=== PATIENT | female | born 1980 | race Caucasian/White ===

== ENCOUNTER 2018-05-21 09:56 | Emergency (ER) | payer MEDICAID ==
[~2018-05-21] VITALS: Ht 149.9 cm; Wt 91.2 kg
[2018-05-21 10:00] VITALS: Ht 149.9 cm; Wt 91.2 kg
[2018-05-21] MEDS ORDERED: SOD CHLORIDE 0.9% 1,000 ML IV ONE (11:30)
[2018-05-21] MEDS ORDERED: LANT3I SC (12:32)
--- NOTE | 2018-05-21 12:35 | ERD ---
ER Documentation Chief Complaint Chief Complaint hyperglycemia BS 225 at home; 9 wks preg ROS All systems reviewed and are negative except as per history of present illness. Medications Home Meds Active Scripts Insulin Glargine* (Lantus*) 100 Unit/Ml Soln, 34 UNIT SC QHS for diabetes, #2 VIAL Prov:CAYDEN DONALD DO 05/21/18 Allergies Allergies: Coded Allergies: No Known Allergy (Unverified , 05/21/18) PMhx/Soc Medical and Surgical Hx: pt denies Medical Hx, pt denies Surgical Hx Hx Alcohol Use: No Hx Substance Use: No Hx Tobacco Use: No Smoking Status: Never smoker Physical Exam Vitals Vital Signs Date Temp Pulse Resp B/P (MAP) Pulse Ox O2 O2 Flow FiO2 Time Delivery Rate 05/21/18 99.2 96 18 147/52 99 10:00 (83) Physical Exam Const: No acute distress Head: Atraumatic Eyes: Normal Conjunctiva ENT: Normal External Ears, Nose and Mouth. Neck: Full range of motion. No meningismus. Resp: Clear to auscultation bilaterally Cardio: Regular rate and rhythm, no murmurs Abd: Soft, non tender, non distended. Normal bowel sounds Skin: No petechiae or rashes Back: No midline or flank tenderness Ext: No cyanosis, or edema Neur: Awake and alert Psych: Normal Mood and Affect Results 24 hrs Laboratory Tests Test 05/21/18 11:27 Bedside Glucose 161 mg/dL Current Medications Medications Dose Sig/Paula Start Time Status Last (Trade) Ordered Route PRN Stop Time Admin Dose Reason Admin Sodium 1,000 ml @ Q1H ONCE 05/21/18 DC Chloride 1,000 mls/hr IV 11:30 05/21/18 12:01 Departure Diagnosis: Primary Impression: Hyperglycemia in Condition: Fair Patient Instructions: Hyperglycemia (High Blood Sugar) Referrals: [facility] YOU HAVE RECEIVED A MEDICAL SCREENING EXAM AND THE RESULTS INDICATE THAT YOU DO NOT HAVE A CONDITION THAT REQUIRES URGENT TREATMENT IN THE EMERGENCY DEPARTMENT. FURTHER EVALUATION AND TREATMENT OF YOUR CONDITION CAN WAIT UNTIL YOU ARE SEEN IN YOUR DOCTORS OFFICE WITHIN THE NEXT 1-2 DAYS. IT IS YOUR RESPONSIBILITY TO MAKE AN APPOINTMENT FOR FOLOW-UP CARE. IF YOU HAVE A PRIMARY DOCTOR --you should call your primary doctor and schedule an appointment IF YOU DO NOT HAVE A PRIMARY DOCTOR YOU CAN CALL OUR PHYSICIAN REFERRAL HOTLINE AT IF YOU CAN NOT AFFORD TO SEE A PHYSICIAN YOU CAN CHOSE FROM THE FOLLOWING [facility] [address] [facility]. [facility] [phone] [address] [facility]. [facility] [address] [facility]. [facility] [address] [facility]. [facility] [address] [facility]. [facility] [address] Additional Instructions: Call your primary care doctor TOMORROW for an appointment during the next 1-2 days.See the doctor sooner or return here if your condition worsens before your appointment time. Follow up with Imaging Center Manager Dr. Hoover on 05/24/2018 at 2pm. CAYDEN DONALD DO May 21, 2018 12:35
[2018-05-21 12:45] VITALS: BP 142/54; PULSE 92; RESP 18
== END 2018-05-21 12:45 | disposition home or self-care (01) ==
LOC: FTE 09:56
DX: O99.89 Other specified diseases and conditions complicating pregnancy, childbirth and the puerperium (principal); R73.9 Hyperglycemia, unspecified; Z3A.09 9 weeks gestation of pregnancy
CPT/HCPCS: 82962; J7030; Z7502; 99282

== ENCOUNTER 2018-05-24 16:48 | Emergency (ER) | payer MEDICAID ==
[~2018-05-24] VITALS: Ht 149.9 cm; Wt 94.0 kg
[~2018-05-24 16:48] MED LIST: LANT3I SC
[2018-05-24 17:00] VITALS: Ht 149.9 cm; Wt 94.0 kg
[2018-05-24] MEDS ORDERED: SOD CHLORIDE 0.9% 1,000 ML IV ONE (20:30)
[2018-05-24 23:05] VITALS: BP 136/77; PULSE 83; RESP 17
--- NOTE | 2018-05-25 01:12 | ERD ---
ER Documentation Chief Complaint Chief Complaint pt is sent by OB MD for admission due to DM and HPI 37 year-old [female] coming in today with Chief Complaint: Hyperglycemia History of Present Illness: Patient reporting [facility] send patient to the ER for evaluation for hyperglycemia patient reports. Approximately 9 weeks . Denies any other associated symptoms; no nausea, vomiting, abdominal pain. Review of systems: All systems were reviewed and are negative except for what is indicated in the history of present illness. Past Medical History: [Negative for hypertension, diabetes or other medical problems] Social History: [Patient denies tobacco, alcohol, elicit drug use] Medications: [None] [Reviewed as documented Nursing Notes] Allergies: [NKDA] [Reviewed as documented in Nursing Notes] Social Concerns: Denies ROS All systems reviewed and are negative except as per history of present illness. Medications Home Meds Active Scripts Insulin Glargine* (Lantus*) 100 Unit/Ml Soln, 34 UNIT SC QHS for diabetes, #2 VIAL Prov:CAYDEN DONALD 05/21/18 Allergies Allergies: Coded Allergies: No Known Allergy (Unverified , 05/24/18) PMhx/Soc History of Surgery: Yes (Ortho surgery) Hx Miscellaneous Medical Probl: Yes (DM) Hx Alcohol Use: No Hx Substance Use: No Hx Tobacco Use: No Smoking Status: Never smoker Physical Exam Vitals Vital Signs Date Temp Pulse Resp B/P (MAP) Pulse Ox O2 O2 Flow FiO2 Time Delivery Rate 05/24/18 98.5 83 17 136/77 100 Room Air 23:05 (96) 05/24/18 98.9 106 16 150/67 99 17:00 (94) Physical Exam Const: No acute distress Head: Atraumatic Eyes: Normal Conjunctiva ENT: Normal External Ears, Nose and Mouth. Neck: Full range of motion. No meningismus. Resp: Clear to auscultation bilaterally Cardio: Regular rate and rhythm, no murmurs Abd: Soft, non tender, non distended. Normal bowel sounds Skin: No petechiae or rashes Back: No midline or flank tenderness Ext: No cyanosis, or edema Neur: Awake and alert Psych: Normal Mood and Affect Result Diagram: 05/24/18 1950 05/24/181949 Results 24 hrs Laboratory Tests Test 05/24/18 19:50 05/24/18 19:53 05/24/18 20:05 05/24/18 22:20 White Blood Count 10.4 10^3/ul Red Blood Count 4.48 10^6/ul Hemoglobin 12.8 g/dl Hematocrit 39.6 % Mean Corpuscular 88.4 fl Volume Mean Corpuscular 28.6 pg Hemoglobin Mean Corpuscular 32.3 g/dl Hemoglobin Concent Red Cell 15.6 % Distribution Width Platelet Count 379 10^3/UL Mean Platelet 9.9 fl Volume Immature 0.400 % Granulocytes % Neutrophils % 61.1 % Lymphocytes % 28.2 % Monocytes % 8.1 % Eosinophils % 1.7 % Basophils % 0.5 % Nucleated Red Blood 0.0 /100WBC Cells % Immature 0.040 10^3/ul Granulocytes # Neutrophils # 6.4 10^3/ul Lymphocytes # 2.9 10^3/ul Monocytes # 0.8 10^3/ul Eosinophils # 0.2 10^3/ul Basophils # 0.1 10^3/ul Nucleated Red Blood 0.0 10^3/ul Cells # Sodium Level 140 mmol/L Potassium Level 4.1 mmol/L Chloride Level 107 mmol/L Carbon Dioxide 22 mmol/L Level Anion Gap 11 Blood Urea Nitrogen 9 mg/dl Creatinine 0.56 mg/dl Est Glomerular > 60 mL/min Filtrat Rate mL/min Glucose Level 157 mg/dl Calcium Level 9.5 mg/dl Bedside Glucose 160 mg/dL 109 mg/dL Urine Color YELLOW Urine Clarity CLEAR Urine pH 6.0 Urine Specific 1.024 [place] Urine Ketones TRACE mg/dL Urine Nitrite NEGATIVE mg/dL Urine Bilirubin NEGATIVE mg/dL Urine Urobilinogen NEGATIVE mg/dL Urine Leukocyte NEGATIVE Brneda/ul Esterase Urine Hemoglobin NEGATIVE mg/dL Urine Glucose 3+ mg/dL Urine Total Protein NEGATIVE mg/dl Current Medications Medications Dose Sig/Paula Start Time Status Last (Trade) Ordered Route PRN Stop Time Admin Dose Reason Admin Sodium 1,000 ml @ Q1H ONCE 05/24/18 DC 05/24/18 Chloride 1,000 mls/hr IV 20:30 05/24/18 20:35 21:29 Procedures/MDM ED course includes a thorough examination and history. ED course includes labs; CBC, CMP, urinalysis. Low suspicion for life-threatening medical emergency. Patient reassessment at 2019: No changes in patient condition. Will order 1 L bolus of IV NS glucose. Patient reassessment at 2230: No changes in patient condition. Glucose has decreased. Updated patient on plan of care, will page Dr. Pike. Physician consultation @2240: Spoke to Dr. Pike by phone. [facility] patient was supposed to go to labor and delivery and not ER. [facility] patient will need to be admitted. Okay to discharge patient from ER and send to OB triage Otherwise healthy patient presenting with constellation of symptoms likely repre senting gestational diabetes as characterized by history, physical exam findings [lab findings]. CMP showing glucose at 157. Urinalysis showing positive ketones and glucose. CBC within normal limits. No respiratory distress, otherwise relatively well appearing and nontoxic. Patient educated on diagnoses, prescriptions, follow-up care, return precautions. Strict return precautions given for worsening condition; questions answered discharge. Disposition for discharge with followup in [facility] immediately after discharge. Departure Diagnosis: Primary Impression: Hyperglycemia during Condition: Stable Patient Instructions: Hyperglycemia (High Blood Sugar) Referrals: [facility] YOU HAVE RECEIVED A MEDICAL SCREENING EXAM AND THE RESULTS INDICATE THAT YOU DO NOT HAVE A CONDITION THAT REQUIRES URGENT TREATMENT IN THE EMERGENCY DEPARTMENT. FURTHER EVALUATION AND TREATMENT OF YOUR CONDITION CAN WAIT UNTIL YOU ARE SEEN IN YOUR DOCTORS OFFICE WITHIN THE NEXT 1-2 DAYS. IT IS YOUR RESPONSIBILITY TO MAKE AN APPOINTMENT FOR FOLOW-UP CARE. IF YOU HAVE A PRIMARY DOCTOR --you should call your primary doctor and schedule an appointment IF YOU DO NOT HAVE A PRIMARY DOCTOR YOU CAN CALL OUR PHYSICIAN REFERRAL HOTLINE AT IF YOU CAN NOT AFFORD TO SEE A PHYSICIAN YOU CAN CHOSE FROM THE FOLLOWING [facility] CL[facility] [address] [facility] [address] [facility] [address] [facility] [address] [facility] [address] [facility]. [address] [facility]. [facility] YOU HAVE RECEIVED A MEDICAL SCREENING EXAM AND THE RESULTS INDICATE THAT YOU DO NOT HAVE A CONDITION THAT REQUIRES URGENT TREATMENT IN THE EMERGENCY DEPARTMENT. FURTHER EVALUATION AND TREATMENT OF YOUR CONDITION CAN WAIT UNTIL YOU ARE SEEN IN YOUR DOCTORS OFFICE WITHIN THE NEXT 1-2 DAYS. IT IS YOUR RESPONSIBILITY TO MAKE AN APPOINTMENT FOR FOLOW-UP CARE. IF YOU HAVE A PRIMARY DOCTOR --you should call your primary doctor and schedule and appointment IF YOU DO NOT HAVE A PRIMARY DOCTOR YOU CAN CALL OUR PHYSICIAN REFERRAL HOTLINE AT . IF YOU CAN NOT AFFORD TO SEE A PHYSICIAN YOU CAN CHOSE FROM THE FOLLOWING [facility] INSTITUTIONS: [facility] [address] [place] [address] [facility] [address] [place] [address] [facility] [address] [place] [address] Additional Instructions: After discharge from ER, reports to [facility] triage for assessment. FRANK MON NP May 25, 2018 01:12
== END 2018-05-24 23:07 | disposition home or self-care (01) ==
LOC: FTE 16:48
DX: O24.419 Gestational diabetes mellitus in pregnancy, unspecified control (principal); Z3A.01 Less than 8 weeks gestation of pregnancy; Z79.4 Long term (current) use of insulin
CPT/HCPCS: 80048; 81003; 82962; 85025; J7030; 36415; 96360; 96361

== ENCOUNTER 2018-05-24 23:24 | Inpatient (IN) | payer MEDICAID ==
[~2018-05-24] VITALS: Ht 149.9 cm; Wt 91.8 kg
[2018-05-24] MEDS ORDERED: GLUCAGON 1 MG INJ IM PRN (23:45)
[2018-05-24] MEDS ORDERED: DEXTROSE 50% 50 ML SYRINGE IV PRN ×2 (23:45)
[2018-05-24] MEDS ORDERED: GLUCOSE GEL 15 GRAM TUBE PO PRN ×2 (23:45)
[2018-05-24] MEDS ORDERED: GLUCOSE GEL 15 GRAM TUBE BUCCAL PRN (23:45)
[2018-05-25] MEDS ORDERED: NACL 0.9% 3 ML SYG IV SCH
[2018-05-25] MEDS ORDERED: AL HYDROX/MG HYDROX/SIMETH 30 ML CUP PO PRN
[2018-05-25] MEDS ORDERED: VITAMIN A & D 5 GM OINT PACKET TOP ONE (01:36)
[2018-05-25 06:18] VITALS: Ht 149.9 cm; Wt 91.8 kg
[2018-05-25] MEDS ORDERED: INSULIN ASPART [NOVOLOG] 3 ML PEN SC SCH (07:35)
[2018-05-25] MEDS: ACCU-CHEK XX SCH ×7 (08:00→21:14)
[2018-05-25] MEDS: PRENATAL VITAMIN PO SCH (10:57)
[2018-05-25] MEDS: FERROUS SULFATE (EC) 325 MG TAB PO SCH (10:57)
[2018-05-25] MEDS: INSULIN ASPART [NOVOLOG] 3 ML PEN SC PRN ×2 (15:36→21:21)
--- NOTE | 2018-05-25 17:49 | HP ---
Date/Time of Note Date/Time of Note DATE: 05/25/18 TIME: 17:46 OB - History Hx of Present Chief Complaint: uncontrolled DM Last Menstrual Period: Mar 18, 2018 : 3 Para: 0 Spontaneous : 1 Therapeutic : 1 Care: Limited Care Obstetrical Complications: None Medical Complications: Other (Type II DM) Past Family/Social History * Past Medical, Surgical, Family and Obstetric Histories reviewed from chart. OB Admission Exam Physical Exam HEENT: WNL Heart: Rhythm Normal Lungs: Clear, Equal Abdomen: WNL Extremities: Normal Reflexes: Normal Last 72 hourBlood Glucose Bedside Glucose - 72 Hours Test 05/25/18 08:26 05/25/18 10:50 05/25/18 13:01 05/25/18 15:15 Bedside 134 187 139 172 Glucose mg/dL (70-220) mg/dL (70-220) mg/dL (70-220) mg/dL (70-220) Last 72 hours Lab Results Hemoglobin A1C Test 05/25/18 00:49 Hemoglobin A1c 8.1 H OB Assessment/Plan Reason for admission: other Other Assessment: 9+ weeks Uncontrolled Type II DM Plan: Other Other plan: Admit Monitor blood glucose Perinatology consult NABILA PIKE MD May 25, 2018 17:49
[2018-05-25] MEDS: ACETAMINOPHEN 325 MG TAB PO PRN (22:03)
[2018-05-26] MEDS: ACETAMINOPHEN 325 MG TAB PO PRN ×2 (05:43→12:33)
[2018-05-26] MEDS: ACCU-CHEK XX SCH ×7 (08:08→20:36)
[2018-05-26] MEDS: PRENATAL VITAMIN PO SCH (08:27)
[2018-05-26] MEDS: FERROUS SULFATE (EC) 325 MG TAB PO SCH (08:27)
[2018-05-26] MEDS: INSULIN ASPART [NOVOLOG] 3 ML PEN SC PRN ×2 (10:21→15:32)
--- NOTE | 2018-05-26 20:45 | QN ---
Documentation Comment No complaint Afebrile VSS Perinatology will start insulin regimen NABILA PIKE MD May 26, 2018 20:45
[2018-05-26] MEDS ORDERED: NPH, HUMAN INSULIN ISOPHANE 3ML VIAL SC SCH (21:00)
[2018-05-27] MEDS: ACCU-CHEK XX SCH ×7 (07:45→20:32)
[2018-05-27] MEDS: FERROUS SULFATE (EC) 325 MG TAB PO SCH (08:31)
[2018-05-27] MEDS: PRENATAL VITAMIN PO SCH (08:31)
[2018-05-27] MEDS: NPH, HUMAN INSULIN ISOPHANE 3ML VIAL SC SCH (08:32)
[2018-05-27] MEDS: INSULIN ASPART [NOVOLOG] 3 ML PEN SC SCH ×2 (08:33→18:06)
--- NOTE | 2018-05-27 18:28 | QN ---
Documentation Comment No complaint Afebrile VSS Blood glucose still elevated Adjust insulin regimen per Perinatology. NABILA PIKE MD May 27, 2018 18:28
[2018-05-27] MEDS ORDERED: NPH, HUMAN INSULIN ISOPHANE 3ML VIAL SC SCH (21:00)
[2018-05-28] MEDS: ACETAMINOPHEN 325 MG TAB PO PRN ×4 (04:44→17:01)
[2018-05-28] MEDS: ACCU-CHEK XX SCH ×6 (07:51→18:09)
[2018-05-28] MEDS: NPH, HUMAN INSULIN ISOPHANE 3ML VIAL SC SCH (08:46)
[2018-05-28] MEDS: INSULIN ASPART [NOVOLOG] 3 ML PEN SC SCH ×2 (08:47→17:50)
[2018-05-28] MEDS: PRENATAL VITAMIN PO SCH (08:49)
[2018-05-28] MEDS: FERROUS SULFATE (EC) 325 MG TAB PO SCH (08:49)
--- NOTE | 2018-05-28 15:39 | CONS ---
DATE OF ADMISSION: 05/24/2018 DATE OF CONSULTATION: 05/28/2018 TYPE OF CONSULTATION: Obstetrics. HISTORY OF PRESENT ILLNESS: The patient currently is at 10 weeks and 1 day yesterday with has been 1 0 weeks, admitted for uncontrolled diabetes. Hemoglobin A1c of 8.1. She had been placed for the pre vious 2 weeks on Levemir. Upon admission, I asked her to stop her insulin, Levemir, put her on slidi ng scale until we have over 24 hours values to evaluate for insulin and she was started on insulin on Sunday night. OBSTETRIC HISTORY: Significant for one and one tap. Denies hypertension. FAMILY HISTORY: Maternal mother has diabetes. VITAL SIGNS: Stable. Physical exam deferred. IMPRESSION: Intrauterine at 10 weeks and 1 day with uncontrolled diabetes, started on insu jani on Sunday night. They were adjusted yesterday and today and her values currently are appropriate enough for outpatient management. She also mentions she has had fatty liver. She denies any history of gallbladder disease or alcohol use. LFTs are to be done. A 24-hour urine for protein has been also done. RECOMMENDATION: The patient can be discharged home with followup with perinatology in 1 week. Paige farias order the insulin regimen as ordered and provide her with her glucometer if she does not have it. Dictated By: OLIVER CHAPA/HERMAN Conf#: [id number] DID#: [id number]
--- NOTE | 2018-05-28 18:26 | DS ---
Date/Time of Note Date/Time of Note DATE: 05/28/18 TIME: 18:25 Obstetrical Discharge Record Final Diagnosis Final Diagnosis: not delivered Other Final Diagnosis Type II DM controlled by insulin Complications Insulin Dependent Diabete Condition on Discharge Physical Assessment Voiding: Yes Bowel Movement: Yes Calf Tenderness: No Patient Condition: Stable NABILA PIKE MD May 28, 2018 18:26
--- NOTE | 2018-05-30 08:52 | RADRPT ---
Vent Rate: 82 bpm RR Interval: 0 msec NE Interval: 150 msec QRS Duration: 82 msec QT Interval: 376 msec QTC Interval: 439 msec P-R-T [place]: 30 - 64 - 16 degrees Normal sinus rhythm Normal ECG Electronically Signed By: Renard Funk
== END 2018-05-28 19:00 | disposition home or self-care (01) | DRG 833 ==
LOC: PP1 23:24
PROVIDERS: ADMIT Obstetrics & Gynecology; ATTEND Obstetrics & Gynecology
DX: O24.111 Pre-existing type 2 diabetes mellitus, in pregnancy, first trimester (principal); E11.65 Type 2 diabetes mellitus with hyperglycemia; Z3A.10 10 weeks gestation of pregnancy; Z83.3 Family history of diabetes mellitus
CPT/HCPCS: 76801; 81003; 82575; 82962; 83036; 84156; 87086; 93005; J1815

== ENCOUNTER 2018-09-08 01:11 | Inpatient (IN) | payer MEDICAID ==
[~2018-09-08] VITALS: Ht 152.4 cm; Wt 93.3 kg
[2018-09-08 01:41] VITALS: BP 112/70; PULSE 102; RESP 18; Ht 152.4 cm; Wt 93.3 kg
[2018-09-08] MEDS ORDERED: PREN1TAB13 PO (01:47)
[2018-09-08] MEDS ORDERED: FERR325T5 PO (01:47)
[2018-09-08] MEDS ORDERED: INSU100C3 SQ (01:47)
[2018-09-08] MEDS ORDERED: ACET325T45 PO (01:47)
[2018-09-08] MEDS ORDERED: NOVO7030 SC (01:47)
[2018-09-08] MEDS ORDERED: CEFTRIAXONE 1 GM/50 ML (PMX) 50 ML IVPB SCH (02:30)
[2018-09-08] MEDS: SOD CHLORIDE 0.9% 1,000 ML IV SCH ×2 (03:04→22:11)
[2018-09-08] MEDS: ACETAMINOPHEN 325 MG TAB PO PRN ×3 (04:23→21:05)
--- NOTE | 2018-09-08 05:04 | TRIAGE ---
OB Triage Datetime Report Generated by CPN: 09/08/2018 05:03 Datetime: 09/08/2018 04:00 Assessment Type: Admission Assessment Maternal Assessment Level of Consciousness: Keenly Alert, Responsive Headache: Denies Blurred Vision: No Respiratory Effort: Unlabored; Regular Rhythm; Equal Expansion Breath Sounds, Left: Clear and Equal Breath Sounds, Right: Clear and Equal Nausea/Vomiting: Denies RUQ Epigastric Pain: Denies Lower Extremities Edema: None Upper Extremities Edema: None Facial Edema: None Fall Risk Assessment History of Falling: (0) No Secondary Diagnosis: (0) No Ambulatory Aid: (0) Bedrest/Nurse Assist IV Therapy: (20) Yes Gait: (0) Normal/Bedrest/Immobile Mental Status: (0) Oriented to Own Ability Fall Score: 20 Fall Risk Score Definition: No Risk: No action required Datetime: 09/08/2018 03:52 Temperature Route: Oral Contraction Comments: DENIES UCS OR CRAMPING Comments: FHR 140-159 + MOVEMENT AND AUDIBLE ACCELS Pain Assessment Pain Scale: 5 Pain Presence: Constant Pain Type: Ache Pain Location: Back (Annotations: SORE THROAT) Pain Relief Measures: Comfort Measures Datetime: 09/08/2018 03:00 Stage of : Antepartum Datetime: 09/08/2018 02:09 Contraction Comments: OFF Comments: MONITORS OFF. NEW ORDERS RECEIVED. Datetime: 09/08/2018 01:54 Stage of : OB Triage Labor Evaluation Frequency: X0 Monitor Mode: External Duration (sec)2399: X0 Pattern: Normal: <= 5 Contractions in 10 Minutes Resting Tone [place]: Relaxed Heart Rate FHR Baseline Rate: 145 Monitor Mode: External US Variability: Moderate 6-25 bpm Accelerations: 15X15 Decelerations: None Category: Category I Comments: APPROPRIATE FOR GESTATIONAL AGE Datetime: 09/08/2018 01:18 Stage of : OB Triage Maternal Assessment Level of Consciousness: Keenly Alert, Responsive DTR's/Clonus: DTRs 2+; No Clonus Headache: Denies Blurred Vision: No Respiratory Effort: Unlabored; Regular Rhythm; Equal Expansion Breath Sounds, Left: Clear and Equal Breath Sounds, Right: Clear and Equal Nausea/Vomiting: Denies RUQ Epigastric Pain: Denies Lower Extremities Edema: None Degree: None Upper Extremities Edema: None Degree: None Facial Edema: None Temperature Route: Oral Fall Risk Assessment History of Falling: (0) No Secondary Diagnosis: (0) No Ambulatory Aid: (0) Bedrest/Nurse Assist IV Therapy: (0) No Gait: (0) Normal/Bedrest/Immobile Mental Status: (0) Oriented to Own Ability Fall Score: 0 Fall Risk Score Definition: No Risk: No action required Pain Assessment Pain Scale: 6 Pain Presence: Constant Pain Type: Cramping; Ache Pain Location: Abdomen; Back Datetime: 09/08/2018 01:00 Time of Arrival: 09/08/2018 00:57 EGA: 24.6 Arrived By: Wheelchair Arrived From: Home Chief Complaint: back pain, fever, sore throat, body ache, dysuria Movement: Present Contractions: Denies/Absent Rupture of Membranes: Denies Vaginal Bleeding: None Vaginal Discharge: Denies Recent Sexual Intercouse: Denies Abdominal Trauma: Not Applicable Patient Complaints: Back Pain; Urinary Frequency; Pain on Urination; Fever; Other Time Provider Notified: 09/08/2018 01:55 Provider Notified: DR. PIKE Initial Plan: EFM, CALL OB Datetime: 07/24/2018 22:55 Time of Arrival: 05/24/2018 22:55 EGA: 9.4 Arrived By: Ambulatory Arrived From: Emergency Dept Datetime: 05/28/2018 18:00 Bedside Blood Glucose: 90 Pain Presence: None/Denies Datetime: 05/28/2018 17:00 Stage of : Antepartum Maternal Assessment Level of Consciousness: Fully Conscious Headache: Denies Nausea/Vomiting: Denies RUQ Epigastric Pain: Denies Pain Presence: None/Denies Datetime: 05/28/2018 16:08 Maternal Assessment Level of Consciousness: Fully Conscious Headache: Denies Blurred Vision: No Respiratory Effort: Equal Expansion Nausea/Vomiting: Denies RUQ Epigastric Pain: Denies Pain Presence: None/Denies Datetime: 05/28/2018 16:01 Stage of : Antepartum Maternal Assessment Level of Consciousness: Fully Conscious Headache: Denies Nausea/Vomiting: Denies RUQ Epigastric Pain: Denies Pain Presence: None/Denies Datetime: 05/28/2018 15:04 Stage of : Antepartum Maternal Assessment Level of Consciousness: Fully Conscious Headache: Denies Blurred Vision: No Respiratory Effort: Unlabored Nausea/Vomiting: Denies RUQ Epigastric Pain: Denies Bedside Blood Glucose: 118 Contraction Comments: pt. denies cramping Pain Assessment Pain Scale: 0 Pain Presence: None/Denies Vaginal Bleeding: None Datetime: 05/28/2018 14:00 Stage of : Antepartum Maternal Assessment Level of Consciousness: Fully Conscious Headache: Denies Nausea/Vomiting: Denies RUQ Epigastric Pain: Denies Pain Presence: None/Denies Datetime: 05/28/2018 13:00 Bedside Blood Glucose: 90 Pain Presence: Intermittent Datetime: 05/28/2018 12:00 Stage of : Antepartum Maternal Assessment Level of Consciousness: Fully Conscious Headache: Denies Nausea/Vomiting: Denies RUQ Epigastric Pain: Denies Pain Presence: None/Denies Datetime: 05/28/2018 10:47 Maternal Assessment Level of Consciousness: Fully Conscious Headache: Denies Blurred Vision: No Respiratory Effort: Unlabored Nausea/Vomiting: Denies RUQ Epigastric Pain: Denies Bedside Blood Glucose: 112 Pain Presence: None/Denies Datetime: 05/28/2018 08:49 Maternal Assessment Level of Consciousness: Fully Conscious Headache: Denies Blurred Vision: No Respiratory Effort: Unlabored Nausea/Vomiting: Denies RUQ Epigastric Pain: Denies Datetime: 05/28/2018 08:12 Stage of : Antepartum Maternal Assessment Level of Consciousness: Fully Conscious Maternal Assessment Level of Consciousness: Fully Conscious Headache: Denies Nausea/Vomiting: Denies RUQ Epigastric Pain: Denies Pain Presence: None/Denies Datetime: 05/28/2018 07:11 Assessment Type: Ongoing Assessment Maternal Assessment Level of Consciousness: Fully Conscious Maternal Assessment Level of Consciousness: Fully Conscious DTR's/Clonus: DTRs 2+; No Clonus Headache: Denies Headache: Denies Blurred Vision: No Blurred Vision: No Respiratory Effort: Unlabored; Regular Rhythm; Equal Expansion Respiratory Effort: Unlabored Breath Sounds, Left: Clear and Equal Breath Sounds, Right: Clear and Equal Nausea/Vomiting: Denies Nausea/Vomiting: Denies RUQ Epigastric Pain: Denies RUQ Epigastric Pain: Denies Lower Extremities Edema: None Upper Extremities Edema: None Facial Edema: None Fall Risk Assessment History of Falling: (0) No Secondary Diagnosis: (0) No Ambulatory Aid: (0) Bedrest/Nurse Assist IV Therapy: (0) No Gait: (0) Normal/Bedrest/Immobile Mental Status: (0) Oriented to Own Ability Fall Score: 0 Fall Risk Score Definition: No Risk: No action required Pain Presence: None/Denies Datetime: 05/28/2018 04:39 Stage of : Antepartum Maternal Assessment Level of Consciousness: Fully Conscious Headache: Denies Blurred Vision: No Temperature Route: Oral Pain Presence: None/Denies Datetime: 05/27/2018 20:21 Bedside Blood Glucose: 92 Datetime: 05/27/2018 19:46 Stage of : Antepartum Assessment Type: Ongoing Assessment Maternal Assessment Level of Consciousness: Fully Conscious DTR's/Clonus: DTRs 2+; No Clonus Headache: Denies Blurred Vision: No Respiratory Effort: Unlabored; Regular Rhythm; Equal Expansion Breath Sounds, Left: Clear and Equal Breath Sounds, Right: Clear and Equal Nausea/Vomiting: Denies RUQ Epigastric Pain: Denies Lower Extremities Edema: None Degree: None Upper Extremities Edema: None Degree: None Facial Edema: None Temperature Route: Oral Fall Risk Assessment History of Falling: (0) No Secondary Diagnosis: (0) No Ambulatory Aid: (0) Bedrest/Nurse Assist IV Therapy: (0) No Gait: (0) Normal/Bedrest/Immobile Mental Status: (0) Oriented to Own Ability Fall Score: 0 Fall Risk Score Definition: No Risk: No action required Pain Presence: None/Denies Datetime: 05/27/2018 18:07 Bedside Blood Glucose: 103 Datetime: 05/27/2018 17:06 Stage of : Antepartum Maternal Assessment Level of Consciousness: Fully Conscious Headache: Denies Nausea/Vomiting: Denies RUQ Epigastric Pain: Denies Pain Assessment Pain Scale: 0 Pain Presence: None/Denies Vaginal Bleeding: None Datetime: 05/27/2018 16:28 Stage of : Antepartum Maternal Assessment Level of Consciousness: Fully Conscious Headache: Denies Nausea/Vomiting: Denies RUQ Epigastric Pain: Denies Temperature Route: Oral Pain Assessment Pain Scale: 0 Pain Presence: None/Denies Vaginal Bleeding: None Datetime: 05/27/2018 16:00 Stage of : Antepartum Maternal Assessment Level of Consciousness: Fully Conscious Headache: Denies Nausea/Vomiting: Denies RUQ Epigastric Pain: Denies Pain Assessment Pain Scale: 0 Pain Presence: None/Denies Vaginal Bleeding: None Datetime: 05/27/2018 15:10 Maternal Assessment Level of Consciousness: Fully Conscious Headache: Denies Blurred Vision: No Respiratory Effort: Unlabored Nausea/Vomiting: Denies RUQ Epigastric Pain: Denies Bedside Blood Glucose: 176 Datetime: 05/27/2018 15:00 Stage of : Antepartum Maternal Assessment Level of Consciousness: Fully Conscious Headache: Denies Nausea/Vomiting: Denies RUQ Epigastric Pain: Denies Pain Assessment Pain Scale: 0 Pain Presence: None/Denies Vaginal Bleeding: None Datetime: 05/27/2018 14:49 Pain Presence: None/Denies Datetime: 05/27/2018 14:00 Stage of : Antepartum Maternal Assessment Level of Consciousness: Fully Conscious Headache: Denies Nausea/Vomiting: Denies RUQ Epigastric Pain: Denies Comments: ega 10.0 today Pain Assessment Pain Scale: 0 Pain Presence: None/Denies Vaginal Bleeding: None Datetime: 05/27/2018 13:00 Bedside Blood Glucose: 106 Datetime: 05/27/2018 12:45 Stage of : Antepartum Datetime: 05/27/2018 12:00 Stage of : Antepartum Pain Presence: None/Denies Datetime: 05/27/2018 11:49 Pain Presence: None/Denies Datetime: 05/27/2018 11:03 Stage of : Antepartum Pain Presence: None/Denies Datetime: 05/27/2018 10:40 Stage of : Antepartum Maternal Assessment Level of Consciousness: Fully Conscious Headache: Denies Blurred Vision: No Respiratory Effort: Unlabored Nausea/Vomiting: Denies RUQ Epigastric Pain: Denies Bedside Blood Glucose: 125 Datetime: 05/27/2018 10:04 Stage of : Antepartum Pain Presence: None/Denies Datetime: 05/27/2018 07:40 Stage of : Antepartum Temperature Route: Oral Datetime: 05/27/2018 07:13 Stage of : Antepartum Respiratory Effort: Unlabored Pain Presence: None/Denies Datetime: 05/27/2018 04:27 Temperature Route: Oral Pain Assessment Pain Scale: 0 Pain Presence: None/Denies Datetime: 05/26/2018 20:35 Bedside Blood Glucose: 185 Datetime: 05/26/2018 20:02 Assessment Type: Ongoing Assessment Maternal Assessment Level of Consciousness: Fully Conscious Headache: Denies Blurred Vision: No Respiratory Effort: Unlabored; Regular Rhythm; Equal Expansion Nausea/Vomiting: Denies RUQ Epigastric Pain: Denies Lower Extremities Edema: None Upper Extremities Edema: None Facial Edema: None Temperature Route: Oral Fall Risk Assessment History of Falling: (0) No Secondary Diagnosis: (0) No Ambulatory Aid: (0) Bedrest/Nurse Assist IV Therapy: (0) No Gait: (0) Normal/Bedrest/Immobile Mental Status: (0) Oriented to Own Ability Fall Score: 0 Fall Risk Score Definition: No Risk: No action required Pain Assessment Pain Scale: 0 Pain Presence: None/Denies Datetime: 05/26/2018 19:00 Stage of : Antepartum Maternal Assessment Level of Consciousness: Fully Conscious Headache: Denies Nausea/Vomiting: Denies RUQ Epigastric Pain: Denies Datetime: 05/26/2018 18:03 Maternal Assessment Level of Consciousness: Fully Conscious Headache: Denies Blurred Vision: No Nausea/Vomiting: Denies RUQ Epigastric Pain: Denies Datetime: 05/26/2018 18:00 Stage of : Antepartum Maternal Assessment Level of Consciousness: Fully Conscious Headache: Denies Nausea/Vomiting: Denies RUQ Epigastric Pain: Denies Pain Presence: None/Denies Vaginal Bleeding: None Datetime: 05/26/2018 17:35 Maternal Assessment Level of Consciousness: Fully Conscious Headache: Denies Blurred Vision: No Respiratory Effort: Unlabored Nausea/Vomiting: Denies RUQ Epigastric Pain: Denies Bedside Blood Glucose: 132 Pain Presence: None/Denies Datetime: 05/26/2018 17:00 Stage of : Antepartum Maternal Assessment Level of Consciousness: Fully Conscious Headache: Denies Nausea/Vomiting: Denies RUQ Epigastric Pain: Denies Pain Presence: None/Denies Vaginal Bleeding: None Datetime: 05/26/2018 16:00 Stage of : Antepartum Maternal Assessment Level of Consciousness: Fully Conscious Headache: Denies Nausea/Vomiting: Denies RUQ Epigastric Pain: Denies Pain Presence: None/Denies Vaginal Bleeding: None Datetime: 05/26/2018 15:29 Maternal Assessment Level of Consciousness: Fully Conscious Headache: Denies Blurred Vision: No Respiratory Effort: Unlabored Nausea/Vomiting: Denies RUQ Epigastric Pain: Denies Bedside Blood Glucose: 179 Datetime: 05/26/2018 14:36 Stage of : Antepartum Maternal Assessment Level of Consciousness: Fully Conscious Headache: Denies Nausea/Vomiting: Denies RUQ Epigastric Pain: Denies Temperature Route: Oral Resting Tone [place]: Relaxed Pain Assessment Pain Scale: 0 Pain Presence: None/Denies Vaginal Bleeding: None Datetime: 05/26/2018 13:30 Maternal Assessment Level of Consciousness: Fully Conscious Headache: Denies Blurred Vision: No Respiratory Effort: Unlabored Nausea/Vomiting: Denies RUQ Epigastric Pain: Denies Bedside Blood Glucose: 129 Datetime: 05/26/2018 12:30 Stage of : Antepartum Maternal Assessment Level of Consciousness: Fully Conscious Headache: Denies Nausea/Vomiting: Denies RUQ Epigastric Pain: Denies Temperature Route: Oral Pain Assessment Pain Scale: 0 Pain Presence: None/Denies Vaginal Bleeding: None Datetime: 05/26/2018 11:01 Stage of : Antepartum Maternal Assessment Level of Consciousness: Fully Conscious Headache: Denies Blurred Vision: No Respiratory Effort: Unlabored Nausea/Vomiting: Denies RUQ Epigastric Pain: Denies Pain Presence: None/Denies Datetime: 05/26/2018 10:14 Maternal Assessment Level of Consciousness: Fully Conscious Headache: Denies Blurred Vision: No Respiratory Effort: Unlabored Nausea/Vomiting: Denies RUQ Epigastric Pain: Denies Bedside Blood Glucose: 180 Datetime: 05/26/2018 10:08 Stage of : Antepartum Maternal Assessment Level of Consciousness: Fully Conscious Headache: Denies Breath Sounds, Right: Clear and Equal Nausea/Vomiting: Denies RUQ Epigastric Pain: Denies Pain Presence: None/Denies Vaginal Bleeding: None Datetime: 05/26/2018 07:42 Stage of : Antepartum Maternal Assessment Level of Consciousness: Fully Conscious Headache: Denies Blurred Vision: No Respiratory Effort: Unlabored Breath Sounds, Left: Clear and Equal Breath Sounds, Right: Clear and Equal Nausea/Vomiting: Denies RUQ Epigastric Pain: Denies Temperature Route: Oral Comments: ega 9.6 Pain Presence: None/Denies Vaginal Bleeding: None Datetime: 05/26/2018 06:35 Stage of : Antepartum Temperature Route: Oral Datetime: 05/26/2018 06:00 Stage of : Antepartum Assessment Type: Ongoing Assessment Datetime: 05/26/2018 05:39 Stage of : Antepartum Temperature Route: Oral Pain Assessment Pain Scale: 5 Pain Presence: Intermittent Pain Type: Ache Pain Location: Head Pain Goal: 3 Pain Relief Measures: Pain Medication Given; Comfort Measures Datetime: 05/26/2018 01:00 Stage of : Antepartum Datetime: 05/25/2018 22:03 Stage of : Antepartum Temperature Route: Oral Pain Assessment Pain Scale: 7 Pain Presence: Intermittent Pain Type: Ache Pain Location: Head Pain Goal: 3 Pain Relief Measures: Pain Medication Given; Comfort Measures Datetime: 05/25/2018 21:45 Stage of : Antepartum Datetime: 05/25/2018 21:14 Stage of : Antepartum Temperature Route: Oral Bedside Blood Glucose: 155 Datetime: 05/25/2018 19:41 Stage of : Antepartum Assessment Type: Ongoing Assessment Maternal Assessment Level of Consciousness: Fully Conscious DTR's/Clonus: DTRs 2+; No Clonus Headache: Denies Blurred Vision: No Respiratory Effort: Unlabored; Regular Rhythm; Equal Expansion Breath Sounds, Left: Clear and Equal Breath Sounds, Right: Clear and Equal Nausea/Vomiting: Denies RUQ Epigastric Pain: Denies Facial Edema: None Temperature Route: Oral Fall Risk Assessment History of Falling: (0) No Secondary Diagnosis: (0) No Ambulatory Aid: (0) Bedrest/Nurse Assist IV Therapy: (0) No Gait: (0) Normal/Bedrest/Immobile Mental Status: (0) Oriented to Own Ability Fall Score: 0 Fall Risk Score Definition: No Risk: No action required Datetime: 05/25/2018 19:20 Stage of : Antepartum Datetime: 05/25/2018 15:14 Bedside Blood Glucose: 172 Datetime: 05/25/2018 13:01 Bedside Blood Glucose: 139 Datetime: 05/25/2018 10:59 Pain Presence: None/Denies Datetime: 05/25/2018 10:49 Bedside Blood Glucose: 187 Datetime: 05/25/2018 08:25 Bedside Blood Glucose: 134 Datetime: 05/25/2018 08:00 Assessment Type: Ongoing Assessment Maternal Assessment Level of Consciousness: Fully Conscious DTR's/Clonus: DTRs 2+; No Clonus Headache: Denies Blurred Vision: No Respiratory Effort: Unlabored; Regular Rhythm; Equal Expansion Breath Sounds, Left: Clear and Equal Breath Sounds, Right: Clear and Equal Nausea/Vomiting: Denies RUQ Epigastric Pain: Denies Facial Edema: None Fall Risk Assessment History of Falling: (0) No Secondary Diagnosis: (0) No Ambulatory Aid: (0) Bedrest/Nurse Assist IV Therapy: (0) No Gait: (0) Normal/Bedrest/Immobile Mental Status: (0) Oriented to Own Ability Fall Score: 0 Fall Risk Score Definition: No Risk: No action required Datetime: 05/25/2018 05:37 Stage of : Antepartum Maternal Assessment Level of Consciousness: Fully Conscious DTR's/Clonus: DTRs 2+ Headache: Denies Blurred Vision: No Temperature Route: Oral Pain Presence: None/Denies Datetime: 05/25/2018 00:37 Stage of : Antepartum Assessment Type: Ongoing Assessment Maternal Assessment Level of Consciousness: Fully Conscious DTR's/Clonus: DTRs 2+; No Clonus Headache: Denies Blurred Vision: No Respiratory Effort: Unlabored; Regular Rhythm; Equal Expansion Breath Sounds, Left: Clear and Equal Breath Sounds, Right: Clear and Equal Nausea/Vomiting: Denies RUQ Epigastric Pain: Denies Lower Extremities Edema: None Degree: None Upper Extremities Edema: None Degree: None Facial Edema: None Temperature Route: Oral Fall Risk Assessment History of Falling: (0) No Secondary Diagnosis: (0) No Ambulatory Aid: (0) Bedrest/Nurse Assist IV Therapy: (0) No Gait: (0) Normal/Bedrest/Immobile Mental Status: (0) Oriented to Own Ability Fall Score: 0 Fall Risk Score Definition: No Risk: No action required Pain Presence: None/Denies Datetime: 05/24/2018 23:40 Assessment Type: Admission Assessment Vaginal Bleeding: None Maternal Assessment Level of Consciousness: Fully Conscious DTR's/Clonus: DTRs 2+; No Clonus Headache: Denies Blurred Vision: No Respiratory Effort: Unlabored; Regular Rhythm; Equal Expansion Breath Sounds, Left: Clear and Equal Breath Sounds, Right: Clear and Equal Nausea/Vomiting: Denies RUQ Epigastric Pain: Denies Facial Edema: None Fall Risk Assessment History of Falling: (0) No Secondary Diagnosis: (0) No Ambulatory Aid: (0) Bedrest/Nurse Assist IV Therapy: (0) No Gait: (0) Normal/Bedrest/Immobile Mental Status: (0) Oriented to Own Ability Fall Score: 0 Fall Risk Score Definition: No Risk: No action required Pain Assessment Pain Scale: 0 Pain Presence: None/Denies Pain Type: N/A Datetime: 05/24/2018 23:38 Vaginal Exam Membrane Status: Intact
[2018-09-08] MEDS: ACCU-CHEK XX SCH ×4 (08:25→20:16)
[2018-09-08] MEDS: INSULIN REGULAR, HUMAN 100 UNIT/1 ML 3ML VIAL SC SCH ×2 (09:19→17:49)
[2018-09-08] MEDS: NPH, HUMAN INSULIN ISOPHANE 3ML VIAL SC SCH (09:22)
[2018-09-08] MEDS: PRENATAL VITAMIN PO SCH (09:22)
[2018-09-08] MEDS: FERROUS SULFATE (EC) 325 MG TAB PO SCH (09:22)
[2018-09-08] MEDS ORDERED: SALINE 0.65% 45 ML NAS SPRAY NASAL PRN (12:00)
--- NOTE | 2018-09-08 16:02 | HP ---
Date/Time of Note Date/Time of Note DATE: 09/08/18 TIME: 15:58 OB - History Hx of Present Chief Complaint: back pain and urinary frequency Estimated Due Date: Dec 23, 2018 : 3 Para: 0 Spontaneous : 2 Therapeutic : 0 Care: Good Care Ultrasounds: Normal mid trimester US Obstetrical Complications: Gestational Diabetes Medical Complications: None Past Family/Social History * Past Medical, Surgical, Family and Obstetric Histories reviewed from chart. OB Admission Exam Vital Signs Vital Signs Vital Signs Date Temp Pulse Resp B/P (MAP) Pulse Ox O2 O2 Flow FiO2 Time Delivery Rate 09/08/18 98.7 102 18 112/70 Room Air 01:41 (84) Physical Exam HEENT: WNL Heart: Rhythm Normal Lungs: Clear, Equal Abdomen: WNL Extremities: Normal Reflexes: Normal Heart Rate: 140's Accelerations: Accelerations Present Decelerations: No Decelerations Varibility: Moderate Last 72 hourBlood Glucose Bedside Glucose - 72 Hours Test 09/08/18 08:24 09/08/18 11:20 09/08/18 14:12 Bedside Glucose 86 mg/dL (70-220) 135 mg/dL (70-220) 149 mg/dL (70-220) OB Assessment/Plan Reason for admission: other Other Assessment: R/O pyelonephritis Plan: Other Other plan: Admit Urine culture Blood culture IV NABILA Barrett MD Sep 08, 2018 16:02
[2018-09-08] MEDS ORDERED: NPH, HUMAN INSULIN ISOPHANE 3ML VIAL SC SCH (21:00)
[2018-09-09] MEDS: SOD CHLORIDE 0.9% 1,000 ML IV SCH (01:12)
[2018-09-09] MEDS ORDERED: CEFTRIAXONE 1 GM/50 ML (PMX) 50 ML IVPB SCH (04:00)
[2018-09-09] MEDS: ACCU-CHEK XX SCH ×3 (08:21→15:30)
[2018-09-09] MEDS: INSULIN REGULAR, HUMAN 100 UNIT/1 ML 3ML VIAL SC SCH ×2 (08:29→18:06)
[2018-09-09] MEDS: NPH, HUMAN INSULIN ISOPHANE 3ML VIAL SC SCH (08:30)
[2018-09-09] MEDS: FERROUS SULFATE (EC) 325 MG TAB PO SCH (08:31)
[2018-09-09] MEDS: PRENATAL VITAMIN PO SCH (08:31)
--- NOTE | 2018-09-09 19:09 | DS ---
Date/Time of Note Date/Time of Note DATE: 09/09/18 TIME: 19:07 Obstetrical Discharge Record Final Diagnosis Final Diagnosis: not delivered Other Final Diagnosis upper respiratory infection Complications Insulin Dependent Diabete Condition on Discharge Physical Assessment Bowel Movement: Yes Calf Tenderness: No Patient Condition: Stable NABILA PIKE MD Sep 09, 2018 19:09
== END 2018-09-09 19:40 | disposition home or self-care (01) | DRG 833 ==
LOC: L-D 01:11 → OBT 01:11 → PP1 03:00
PROVIDERS: ADMIT Obstetrics & Gynecology; ATTEND Obstetrics & Gynecology
DX: O23.42 Unspecified infection of urinary tract in pregnancy, second trimester (principal); Z3A.24 24 weeks gestation of pregnancy
CPT/HCPCS: 36415; 80053; 81003; 82962; 85025; 87086; G0463; J0696; J1815; J7030

== ENCOUNTER 2018-09-29 05:35 | Outpatient (CLI) | payer MEDICAID ==
[~2018-09-29] VITALS: Ht 149.9 cm; Wt 92.6 kg
[~2018-09-29 05:35] MED LIST changes: +FERR325T5 PO; +INSU100C3 SQ; -LANT3I SC; +NOVO7030 SC; +PREN1TAB13 PO
[2018-09-29] MEDS ORDERED: ACETAMINOPHEN 500 MG TAB PO ONE (06:52)
[2018-09-29 07:02] VITALS: BP 104/60; PULSE 83; RESP 19; Ht 149.9 cm; Wt 92.6 kg
[2018-09-29] MEDS ORDERED: INSULIN REGULAR, HUMAN 100 UNIT/1 ML 3ML VIAL SC SCH ×2 (08:00→18:00)
[2018-09-29] MEDS ORDERED: NPH, HUMAN INSULIN ISOPHANE 3ML VIAL SC SCH (08:00)
[2018-09-29] MEDS ORDERED: ACET/BUTAL/CAFF TAB PO PRN (10:20)
--- NOTE | 2018-09-29 10:30 | PN ---
Triage Information Date/Time at 27 6/ [facility] mary 12/23/18 cc: complaints of headache and abdominal pain primary ob: delshad glu 106 c.l. 4.1 cm vitals stable wnl efm 1. singleton-pec labs normal. improved w tylenol. will try fioricet q6 prn Laboratory Tests Test 09/29/18 08:43 Blood Urea Nitrogen 7 mg/dl Carbon Dioxide Level 19 mmol/L Chloride Level 113 mmol/L Creatinine 0.44 mg/dl Glucose Level 106 mg/dl Hematocrit 33.9 % Hemoglobin 11.4 g/dl Platelet Count 310 10^3/UL Potassium Level 3.9 mmol/L Sodium Level 140 mmol/L White Blood Count 11.5 10^3/ul 2. dm-ada diet and insulin. bs wnl. 3. abdominal pain-labs wnl dispo: discharge to home Reason for visit: Abd/pelvic pain Weeks of Gestation 27 /Para Objective Vital Signs Date Temp Pulse Resp B/P (MAP) Pulse Ox O2 O2 Flow FiO2 Time Delivery Rate 09/29/18 97.4 83 19 104/60 Room Air 07:02 (75) Results/Medications Result Diagram: 09/29/18 0843 09/29/18 0843 Results 24 hrs Laboratory Tests Test 09/29/18 06:03 09/29/18 06:45 09/29/18 08:43 09/29/18 08:54 Bedside Glucose 100 105 Urine Color STRAW Urine Clarity CLEAR Urine pH 6.0 Urine Specific [place] 1.010 Urine Ketones NEGATIVE Urine Nitrite NEGATIVE Urine Bilirubin NEGATIVE Urine Urobilinogen NEGATIVE Urine Leukocyte Esterase NEGATIVE Urine Hemoglobin NEGATIVE Urine Glucose NEGATIVE Urine Total Protein NEGATIVE White Blood Count 11.5 H Red Blood Count 3.72 L Hemoglobin 11.4 L Hematocrit 33.9 L Mean Corpuscular Volume 91.1 Mean Corpuscular 30.6 Hemoglobin Mean Corpuscular 33.6 Hemoglobin Concent Red Cell Distribution 14.2 Width Platelet Count 310 Mean Platelet Volume 9.8 Immature Granulocytes % 0.600 H Neutrophils % 76.9 Lymphocytes % 15.5 Monocytes % 5.0 Eosinophils % 1.7 Basophils % 0.3 Nucleated Red Blood 0.0 Cells % Immature Granulocytes # 0.070 H Neutrophils # 8.8 H Lymphocytes # 1.8 Monocytes # 0.6 Eosinophils # 0.2 Basophils # 0.0 Nucleated Red Blood 0.0 Cells # Sodium Level 140 Potassium Level 3.9 Chloride Level 113 H Carbon Dioxide Level 19 L Anion Gap 8 Blood Urea Nitrogen 7 Creatinine 0.44 Est Glomerular Filtrat > 60 Rate mL/min Glucose Level 106 Uric Acid 3.1 Calcium Level 9.3 Total Bilirubin 0.3 Direct Bilirubin 0.00 Indirect Bilirubin 0.3 Aspartate Amino 15 Transf (AST/SGOT) Alanine 9 L Aminotransferase (ALT/SG PT) Alkaline Phosphatase 81 Total Protein 7.2 Albumin 3.6 Globulin 3.60 H Albumin/Globulin Ratio 1.00 Medications Current Medications Insulin Human Regular (Humulin R) 14 unit WITH BREAKFAST SC Last administered on 09/29/18at 08:57; Admin Dose 14 UNIT; Start 09/29/18 at 08:00 Insulin Human Regular (Humulin R) 16 unit WITH DINNER SC ; Start 09/29/18 at 18:00 Insulin Human NPH (Humulin N) 24 unit BID@08,20 SC Last administered on 09/29/18at 08:55; Admin Dose 24 UNIT; Start 09/29/18 at 08:00 EDIS SANTIAGO MD Sep 29, 2018 10:30
== END 2018-09-29 11:37 | disposition home or self-care (01) ==
LOC: OBT 05:35 → L-D 05:37 → OBT 11:37
PROVIDERS: ATTEND Obstetrics & Gynecology
DX: O26.892 Other specified pregnancy related conditions, second trimester (principal); R51 Headache; R10.9 Unspecified abdominal pain; O24.414 Gestational diabetes mellitus in pregnancy, insulin controlled; O09.522 Supervision of elderly multigravida, second trimester; Z3A.27 27 weeks gestation of pregnancy
CPT/HCPCS: 36415; 76817; 76818; 80053; 81003; 82962; 84560; 85025; J1815; Z7500; Z7610; G0463

== ENCOUNTER 2018-10-02 18:34 | Outpatient (CLI) | payer MEDICAID ==
[~2018-10-02] VITALS: Ht 149.9 cm; Wt 91.6 kg
[2018-10-02 19:15] VITALS: BP 123/76; PULSE 92; RESP 18
[2018-10-02 20:09] VITALS: Ht 149.9 cm; Wt 91.6 kg
--- NOTE | 2018-10-02 23:44 | TRIAGE ---
OB Triage Datetime Report Generated by CPN: 10/02/2018 23:44 Datetime: 10/02/2018 21:04 Pain Assessment Pain Scale: 2 Pain Presence: Constant Pain Type: Ache Pain Location: Head Datetime: 10/02/2018 19:30 Time of Arrival: 10/02/2018 18:30 EGA: 28.2 Arrived By: Ambulatory Arrived From: Office Chief Complaint: Sent from office for having a headache for one week with no relief with Tylenol Movement: Present Contractions: Denies/Absent Rupture of Membranes: Denies Vaginal Bleeding: None Vaginal Discharge: Denies Recent Sexual Intercouse: Denies Abdominal Trauma: Not Applicable Patient Complaints: Headache Time Provider Notified: 10/02/2018 20:25 Initial Plan: CEFM, CBC, CMP, uric acid, UA, BPP Datetime: 10/02/2018 19:15 Stage of : OB Triage Assessment Type: Triage Maternal Assessment Level of Consciousness: Keenly Alert, Responsive DTR's/Clonus: DTRs 2+; No Clonus Headache: Denies Blurred Vision: No Respiratory Effort: Unlabored; Regular Rhythm; Equal Expansion Breath Sounds, Left: Clear and Equal Breath Sounds, Right: Clear and Equal Nausea/Vomiting: Denies RUQ Epigastric Pain: Denies Facial Edema: None Temperature Route: Oral Fall Risk Assessment History of Falling: (0) No Secondary Diagnosis: (0) No Ambulatory Aid: (0) Bedrest/Nurse Assist IV Therapy: (0) No Gait: (0) Normal/Bedrest/Immobile Mental Status: (0) Oriented to Own Ability Fall Score: 0 Fall Risk Score Definition: No Risk: No action required Datetime: 10/02/2018 19:12 Pain Assessment Pain Scale: 2 Pain Presence: Constant Pain Type: Ache Pain Location: Head Datetime: 09/29/2018 11:00 Bedside Blood Glucose: 110 Datetime: 09/29/2018 09:00 Stage of : OB Triage Maternal Assessment Level of Consciousness: Keenly Alert, Responsive Labor Evaluation Frequency: 1UC Monitor Mode: External Duration (sec)2399: 50 Quality: Mild Resting Tone [place]: Relaxed Heart Rate FHR Baseline Rate: 135 Monitor Mode: External US Variability: Moderate 6-25 bpm Accelerations: 15X15 Decelerations: None Category: Category I Pain Assessment Pain Scale: 0 Pain Goal: 3 Vaginal Exam Membrane Status: Intact Vaginal Bleeding: None Datetime: 09/29/2018 08:59 Bedside Blood Glucose: 104 Datetime: 09/29/2018 08:00 Stage of : OB Triage Maternal Assessment Level of Consciousness: Keenly Alert, Responsive Labor Evaluation Frequency: NONE Monitor Mode: External Resting Tone [place]: Relaxed Heart Rate FHR Baseline Rate: 135 Monitor Mode: External US Variability: Moderate 6-25 bpm Accelerations: 15X15 Decelerations: None Category: Category I Pain Assessment Pain Scale: 0 Pain Goal: 3 Vaginal Exam Membrane Status: Intact Vaginal Bleeding: None Datetime: 09/29/2018 07:09 Labor Evaluation Frequency: irritability Quality: Mild Pattern: Normal: <= 5 Contractions in 10 Minutes Resting Tone [place]: Relaxed Heart Rate FHR Baseline Rate: 130 Variability: Moderate 6-25 bpm Accelerations: None Decelerations: None Category: Category I Datetime: 09/29/2018 06:10 Stage of : OB Triage Labor Evaluation Frequency: irregular Monitor Mode: External Quality: Mild Pattern: Normal: <= 5 Contractions in 10 Minutes Resting Tone [place]: Relaxed Heart Rate FHR Baseline Rate: 135 Monitor Mode: External US Variability: Moderate 6-25 bpm Accelerations: 15X15 Decelerations: None Category: Category I Comments: occassional loss of contact Datetime: 09/29/2018 05:37 Monitor Mode: External Monitor Mode: External US Datetime: 09/29/2018 05:28 Time of Arrival: 09/29/2018 05:28 EGA: 27.6 Arrived By: Wheelchair Arrived From: Home Chief Complaint: Headache, abdl pain Movement: Present Contractions: Irregular Rupture of Membranes: Denies Vaginal Bleeding: None Vaginal Discharge: Denies Recent Sexual Intercouse: Denies Abdominal Trauma: Not Applicable Patient Complaints: Cramping; Headache Time Provider Notified: 09/29/2018 06:30 Provider Notified: Dr. Hoover Initial Plan: Tylenol PO,CL, BPP, PIH PANEL, UA, 2000ADA, BS, insulin Datetime: 09/09/2018 19:40 Stage of : Antepartum Datetime: 09/09/2018 14:38 Pain Location: Back Pain Relief Measures: Pain Medication Given; Comfort Measures Pain Assessment Comments: lower mid back Datetime: 09/09/2018 10:51 Labor Evaluation Frequency: occasional Monitor Mode: External Quality: Mild Resting Tone [place]: Relaxed Heart Rate FHR Baseline Rate: 130 Monitor Mode: External US FHR Baseline Changes: No Baseline Change Variability: Moderate 6-25 bpm Accelerations: 15X15 Decelerations: None Category: Category I Pain Presence: None/Denies Datetime: 09/09/2018 10:31 Bedside Blood Glucose: 132 Datetime: 09/09/2018 10:24 Comments: monitors on Datetime: 09/09/2018 09:23 Nausea/Vomiting: Present Datetime: 09/09/2018 08:37 Assessment Type: Ongoing Assessment Maternal Assessment Level of Consciousness: Keenly Alert, Responsive DTR's/Clonus: DTRs 2+; No Clonus Headache: Denies Blurred Vision: No Respiratory Effort: Unlabored; Regular Rhythm; Equal Expansion Breath Sounds, Left: Clear and Equal Breath Sounds, Right: Clear and Equal Nausea/Vomiting: Denies RUQ Epigastric Pain: Denies Facial Edema: None Fall Risk Assessment History of Falling: (0) No Secondary Diagnosis: (0) No Ambulatory Aid: (0) Bedrest/Nurse Assist Gait: (0) Normal/Bedrest/Immobile Mental Status: (0) Oriented to Own Ability Datetime: 09/09/2018 08:35 Pain Presence: None/Denies Datetime: 09/09/2018 08:30 Bedside Blood Glucose: 72 Datetime: 09/09/2018 05:22 Maternal Assessment Level of Consciousness: Keenly Alert, Responsive Headache: Denies Blurred Vision: No Datetime: 09/08/2018 23:39 Pain Presence: None/Denies Pain Assessment Comments: PT STATED SHE FEELS BETTER AFTER TYLENOL. Datetime: 09/08/2018 22:33 Labor Evaluation Frequency: 0 Monitor Mode: External Resting Tone [place]: Relaxed Heart Rate FHR Baseline Rate: 140 Monitor Mode: External US Variability: Moderate 6-25 bpm Accelerations: 15X15 Decelerations: None Comments: NST DONE,APPROPRIATE FOR GA. Datetime: 09/08/2018 21:35 Monitor Mode: External Contraction Comments: PLACED NST STARTED. Monitor Mode: External US Comments: PLACED NST STARTED. Datetime: 09/08/2018 20:08 Bedside Blood Glucose: 83 (Annotations: 2 PP DINNER.) Datetime: 09/08/2018 19:41 Stage of : Antepartum Assessment Type: Ongoing Assessment Maternal Assessment Level of Consciousness: Keenly Alert, Responsive DTR's/Clonus: DTRs 2+; No Clonus Headache: Denies Blurred Vision: No Respiratory Effort: Unlabored; Regular Rhythm; Equal Expansion Breath Sounds, Left: Clear and Equal Breath Sounds, Right: Clear and Equal Nausea/Vomiting: Denies RUQ Epigastric Pain: Denies Lower Extremities Edema: None Degree: None Upper Extremities Edema: None Degree: None Facial Edema: None Temperature Route: Oral Fall Risk Assessment History of Falling: (0) No Secondary Diagnosis: (0) No Ambulatory Aid: (0) Bedrest/Nurse Assist IV Therapy: (0) No Gait: (0) Normal/Bedrest/Immobile Mental Status: (0) Oriented to Own Ability Fall Score: 0 Fall Risk Score Definition: No Risk: No action required Pain Presence: None/Denies Vaginal Exam Membrane Status: Intact Datetime: 09/08/2018 17:45 Stage of : Antepartum Datetime: 09/08/2018 16:43 Stage of : Antepartum Temperature Route: Oral Pain Assessment Pain Scale: 0 Pain Presence: None/Denies Pain Type: N/A Datetime: 09/08/2018 11:48 Stage of : Antepartum Temperature Route: Oral Datetime: 09/08/2018 11:37 Labor Evaluation Frequency: 0 Monitor Mode: External Resting Tone [place]: Relaxed Heart Rate FHR Baseline Rate: 140 Monitor Mode: External US FHR Baseline Changes: No Baseline Change Variability: Moderate 6-25 bpm Accelerations: 15X15 Decelerations: None Datetime: 09/08/2018 10:52 Monitor Mode: External Monitor Mode: External US Comments: NST started Datetime: 09/08/2018 07:32 Stage of : Antepartum Datetime: 09/08/2018 07:29 Stage of : Antepartum Assessment Type: Ongoing Assessment Maternal Assessment Level of Consciousness: Keenly Alert, Responsive Headache: Denies Blurred Vision: No Respiratory Effort: Unlabored; Regular Rhythm; Equal Expansion Breath Sounds, Left: Clear and Equal Breath Sounds, Right: Clear and Equal Nausea/Vomiting: Denies RUQ Epigastric Pain: Denies Lower Extremities Edema: None Upper Extremities Edema: None Facial Edema: None Temperature Route: Oral Fall Risk Assessment History of Falling: (0) No Secondary Diagnosis: (0) No Ambulatory Aid: (0) Bedrest/Nurse Assist IV Therapy: (20) Yes Gait: (0) Normal/Bedrest/Immobile Mental Status: (0) Oriented to Own Ability Fall Score: 20 Fall Risk Score Definition: No Risk: No action required Pain Assessment Pain Scale: 4 Pain Presence: Intermittent Pain Type: Burning; Ache Pain Location: Back; Other (Annotations: throat) Pain Relief Measures: Pain Medication Given Datetime: 09/08/2018 05:08 Maternal Assessment Level of Consciousness: Not alert, Arousable Datetime: 09/08/2018 04:00 Fall Score: 20 Fall Risk Score Definition: No Risk: No action required Datetime: 09/08/2018 01:18 Fall Score: 0 Fall Risk Score Definition: No Risk: No action required Datetime: 09/08/2018 01:00 EGA: 24.6 Datetime: 07/24/2018 22:55 EGA: 9.4 Datetime: 05/28/2018 07:11 Fall Score: 0 Fall Risk Score Definition: No Risk: No action required Datetime: 05/27/2018 19:46 Fall Score: 0 Fall Risk Score Definition: No Risk: No action required Datetime: 05/26/2018 20:02 Fall Score: 0 Fall Risk Score Definition: No Risk: No action required Datetime: 05/25/2018 19:41 Fall Score: 0 Fall Risk Score Definition: No Risk: No action required Datetime: 05/25/2018 08:00 Fall Score: 0 Fall Risk Score Definition: No Risk: No action required Datetime: 05/25/2018 00:37 Fall Score: 0 Fall Risk Score Definition: No Risk: No action required Datetime: 05/24/2018 23:40 Fall Score: 0 Fall Risk Score Definition: No Risk: No action required
[2018-10-03] MEDS ORDERED: SODI126M NASAL (01:18)
[2018-10-03] MEDS ORDERED: ACET500C5 PO (01:18)
[2018-10-03] MEDS ORDERED: GUAI-637 PO (01:18)
--- NOTE | 2018-10-15 12:31 | PN ---
Triage Information Date/Time Date of service 10/02/2018 Reason for visit: headache Weeks of Gestation 28 weeks /Para Diabetes: pre-gestational Diabetes management: insulin controlled Hypertention: none Objective Heart Rate: 130's Heart Rate Comments Reactive Contractions: None Disposition: Assessment/Plan Patient cleared from OB standpoint Transfer to ED for further evaluation NABILA PIKE MD Oct 15, 2018 12:31
== END 2018-10-02 22:03 | disposition home or self-care (01) ==
LOC: OBT 18:34 → L-D 18:36 → OBT 22:03
PROVIDERS: ATTEND Obstetrics & Gynecology
DX: O26.893 Other specified pregnancy related conditions, third trimester (principal); R51 Headache; O24.113 Pre-existing type 2 diabetes mellitus, in pregnancy, third trimester; E11.9 Type 2 diabetes mellitus without complications; Z79.4 Long term (current) use of insulin; Z3A.28 28 weeks gestation of pregnancy
CPT/HCPCS: 76818; 80053; 81003; 84560; 85025; Z7500; G0463

== ENCOUNTER 2018-10-02 22:13 | Emergency (ER) | payer MEDICAID ==
[~2018-10-02] VITALS: Ht 149.9 cm; Wt 91.5 kg
[2018-10-02 22:32] VITALS: Ht 149.9 cm; Wt 91.5 kg
[2018-10-03] MEDS ORDERED: ACET500C5 PO (01:18)
[2018-10-03] MEDS ORDERED: GUAI-637 PO (01:18)
[2018-10-03] MEDS ORDERED: SODI126M NASAL (01:18)
--- NOTE | 2018-10-03 01:25 | ERD ---
ER Documentation Chief Complaint Chief Complaint flu-liked symptoms (HAs,achy throat,congestion,L eye redness) x 1month HPI 38-year-old female with no reported past medical history G3, P0 currently 28 weeks who presents with complaint of frontal type headache, sore throat, congestion and left eye redness over the past month. Patient describes headache as frontal type headache without radiation, without associated nausea vomiting, blurry vision. Has had left-sided eye redness which she noticed yesterday. Has had some discharge from left eye along with itching and swelling. She has had a persistent cough over the past month. Cough is intermittent and sometimes productive of white or yellow sputum. Also with complaint of sinus pressure. Patient was seen approximately a month ago on 09 September upstairs and given IV antibiotics as well as a week of antibiotic pills per patient. Recently given a single dose of Fioricet for headache complaints. She otherwise denies fevers, chills, shortness of breath, dyspnea, nausea, vomiting, diarrhea, rash, urinary symptoms, vaginal bleeding or discharge. Patient cleared by WELFARE DIRECTOR service prior to this encounter. ROS All systems reviewed and are negative except as per history of present illness. Medications Home Meds Active Scripts Acetaminophen* (Tylophen*) 500 Mg Capsule, 1 CAP PO Q6H PRN for PAIN AND OR ELEVATED TEMP, #20 CAP Prov:MANUELA BENDER PA-C 10/03/18 Sodium Chloride (Saline Nasal Mist) 126 Ml Mist, 2 SPRAY NASAL Q6 for 10 Days, BOTTLE Prov:MANUELA BENDER PA-C 10/03/18 Guaifenesin* (Robitussin*) 100 Mg/5 Ml Syrup, 100 MG PO Q6H PRN for COUGH for 7 Days, ML Prov:MANUELA BENDER PA-C 10/03/18 Reported Medications Insulin Isophan/Regular (Humulin 70/30) 100 Units/Ml Susp, 24 UNIT SC AC BREAKFAST BEDTIME, EA 09/08/18 Insulin Aspart (Novolog) 100 Unit/1 Ml Cartridge, 16 UNIT SQ AC BREAKFAST DINNER 09/08/18 Ferrous Sulfate (Ferrous Sulfate) 325 Mg Tablet.dr, 325 MG PO 09/08/18 Pnv95/Ferrous Fumarate/FA ( Vitamins Tablet) 1 Each Tablet, 1 EACH PO, TAB 09/08/18 Allergies Allergies: Coded Allergies: No Known Allergy (Unverified , 7/10/19) PMhx/Soc History of Surgery: Yes (Ortho surgery) Hx Miscellaneous Medical Probl: Yes (DM) Hx Alcohol Use: No Hx Substance Use: No Hx Tobacco Use: No FmHx Family History: No diabetes, No coronary disease, No other Physical Exam Vitals Vital Signs Date Temp Pulse Resp B/P (MAP) Pulse Ox O2 O2 Flow FiO2 Time Delivery Rate 10/02/18 99.2 92 18 136/80 98 22:32 (98) Physical Exam I have reviewed the triage vital signs. Const: Well nourished, well developed, appears stated age Eyes: PERRL, no conjunctival injection, left eye with some redness but no discharge, no vision complaints HENT: NCAT, Neck supple without meningismus CV: RRR, Warm, well-perfused extremities RESP: CTAB, Unlabored respiratory effort GI: soft, non-tender, non-distended, no masses MSK: No gross deformities appreciated Skin: Warm, dry. No rashes Neuro: grossly non focal Psych: Appropriate mood and affect. Procedures/MDM 38-year-old female G3, P0 currently 28 weeks presents with multiple complaints including headache, sore throat, left eye redness, and cough. Given patient's will elect to treat symptomatically with appropriate medications. I have low suspicion for any acute process such as underlying bacterial infection which warrant further emergent care or work-up. Patient is afebrile with no normal limit vital signs. Patient cleared by WELFARE DIRECTOR service prior to this and encounter. We will treat with Robitussin for cough, Tylenol for headaches, saline nasal spray for sinus pressure and congestion. Patient advised to follow-up with WELFARE DIRECTOR service as well as her PMD. DISPOSITION PLAN: We discussed follow up with the patient's primary care doctor within 24 to 48 hours. Patient counseled regarding my diagnostic impression and care plan. Prior to discharge all questions answered. Pt agrees with treatment plan and understands strict return precautions. Precautionary instructions provided including instructions to return to the ER if not improving or for any worsening or changing symptoms or concerns. Disclaimer: Inadvertent spelling and grammatical errors are likely due to EHR/dictation software use and do not reflect on the overall quality of patient care. Also, please note that the electronic time recorded on this note does not necessarily reflect the actual time of the patient encounter. Departure Diagnosis: Primary Impression: Headache Additional Impression: Cough Condition: Stable Patient Instructions: Self-Care for Headaches, Cough, Chronic, Uncertain Cause, (Adult) Referrals: [facility] YOU HAVE RECEIVED A MEDICAL SCREENING EXAM AND THE RESULTS INDICATE THAT YOU DO NOT HAVE A CONDITION THAT REQUIRES URGENT TREATMENT IN THE EMERGENCY DEPARTMENT. FURTHER EVALUATION AND TREATMENT OF YOUR CONDITION CAN WAIT UNTIL YOU ARE SEEN IN YOUR DOCTORS OFFICE WITHIN THE NEXT 1-2 DAYS. IT IS YOUR RESPONSIBILITY TO MAKE AN APPOINTMENT FOR FOLOW-UP CARE. IF YOU HAVE A PRIMARY DOCTOR --you should call your primary doctor and schedule an appointment IF YOU DO NOT HAVE A PRIMARY DOCTOR YOU CAN CALL OUR PHYSICIAN REFERRAL HOTLINE AT IF YOU CAN NOT AFFORD TO SEE A PHYSICIAN YOU CAN CHOSE FROM THE FOLLOWING [facility] [address] [employer] [address] [facility] [address] [employer] [facility] [address] [facility] [address] [facility] [address] [facility] [address] Additional Instructions: Call your primary care doctor TOMORROW for an appointment during the next 2-3 days.See the doctor sooner or return here if your condition worsens before your appointment time. Follow-up with your WELFARE DIRECTOR in the next 1 to 2 days. MANUELA BENDRE PA-C Oct 03, 2018 01:25
[2018-10-03 01:40] VITALS: BP 125/74; PULSE 81; RESP 18
--- NOTE | 2018-10-03 19:47 | PN ---
Triage Information Date/Time 10/02/2018 Reason for visit: Headache, Nasal congestion. Weeks of Gestation 28 weeks and 2 days /Para Diabetes: none Hypertention: none Additional information 38 years old with IUP at 28 weeks and 2 days presented with complaint of headachem sorethroat, congestion and runny eye and pink eye. she has been seen here in L&D few days ago for the same symptoms, Ruled out for PIH. Patient denies any LOF, vaginal bleeding or decreased movement. She denies any blurred vision, Epigastric pain or RUQ pain. Objective Vital Signs Date Temp Pulse Resp B/P (MAP) Pulse Ox O2 O2 Flow FiO2 Time Delivery Rate 10/03/18 98.3 81 18 125/74 99 Room Air 01:40 (91) Heart Rate: 130's Heart Rate Comments Cat 1 Exam GA: A&o, NAD Abdomen: Soft, non tender. Size consistent with date HEENT: Conjunctivitis of the left eye noted Abdomen, Soft, non tender. Size consistent with date NST: Cat 1 BPP: 10/31 JODI: 16.1 Results/Medications Imaging Results PROCEDURE: Biophysical profile. CLINICAL INDICATION: Pelvic pain, hypertension. TECHNIQUE: Multiple sonographic images of the pelvis were obtained with transabdominal technique. COMPARISON: 09/29/2018. FINDINGS: There is a single living intrauterine gestation with the fetus in a breech position. The placenta is anterior in location. heart tones of 132 beats per minute are identified. There is normal amniotic fluid volume with an JODI of 16.1 cm. breathing movements = 2 Gross body movements = 2 tone = 2 Qualitative AFV = 2 IMPRESSION: Biophysical profile 8 out of 8. Disposition: Discharge Assessment/Plan IUP at 28 weeks and 2 days size consistent with date No evidence of PPROM or PTL Headache , sore throat. [place] eye, likely URI Patient will be sent to ED for evaluaton Strict labor precaution, FKC and preclampsia precaution given Follow up with primary OB in 48 hours after DC from the hospital discussed patient verbalized understanding all questions were answered to the patient's best satisfaction FELTON WILDE MD Oct 03, 2018 19:43
== END 2018-10-03 01:45 | disposition home or self-care (01) ==
LOC: FTE 22:13
DX: O26.893 Other specified pregnancy related conditions, third trimester (principal); R51 Headache; R05 Cough; O24.113 Pre-existing type 2 diabetes mellitus, in pregnancy, third trimester; E11.9 Type 2 diabetes mellitus without complications; Z3A.28 28 weeks gestation of pregnancy; Z79.4 Long term (current) use of insulin
CPT/HCPCS: 99282